=== PATIENT | female | born 1935 | race Caucasian/White ===

== ENCOUNTER 2016-08-09 13:39 | Emergency (ER) | payer OTHER ==
[~2016-08-09] VITALS: Ht 157.5 cm; Wt 71.2 kg
[~2016-08-09 13:39] MED LIST: AMLODIPINE BES2.5 MG PO; AMLODIPINE BESYL5 MG PO; AMLODIPINE BESYLATE; ASPIRIN325 MG PO; CATAPRES0.1 MG PO; CELEBREX; CELEBREX200 MG PO; CRANBERRY200 MG PO; DIOVAN160 MG PO; DOXYCYCLINE; FENTANYL1 EAC5 TD; FLEXERIL10 MG PO; GLUCOSAMINE CH1 EAC4 PO; ICAPS LUTEIN1 TABLET PO; LEVOTHROID75 MCG PO; LEVOTHYROXINE; LEVOTHYROXINE75 MCG PO; LO-DOSE ASPIRIN81 M1; MULTIVITAMIN1 EAC2 PO; ONGLYZA; ONGLYZA5 MG PO; PROMETHAZINE HC25 M1 PO; TRADJENTA5 MG; TRAMADOL; TRAMADOL HCL50 MG PO; Xanax PO
[2016-08-09 16:07] VITALS: BP 136/63
== END 2016-08-09 16:09 | disposition home or self-care (01) ==
LOC: EME 13:39
DX: M54.5 Low back pain (principal); G89.29 Other chronic pain; M25.552 Pain in left hip; M79.605 Pain in left leg; I10 Essential (primary) hypertension; E11.9 Type 2 diabetes mellitus without complications; E03.9 Hypothyroidism, unspecified; Z79.82 Long term (current) use of aspirin; F17.200 Nicotine dependence, unspecified, uncomplicated
CPT/HCPCS: 99281; 99284; J2270

== ENCOUNTER 2016-08-20 12:27 | Emergency (ER) | payer OTHER ==
[~2016-08-20] VITALS: Ht 157.5 cm; Wt 73.1 kg
[2016-08-20 14:47] LABS: ADD MIUA? NO; BILIRUBIN NEGATIVE; BLOOD NEGATIVE; COLOR STRAW ((YELLOW)); GLUCOSE (STRIP) NEGATIVE; KETONES NEGATIVE; LEUKOCYTES NEGATIVE; NITRITE NEGATIVE; PROTEIN (STRIP) NEGATIVE; SPECIFIC GRAVITY 1.004 (1.000-1.030); UCUL ADDED? NO; UROBILINOGEN 0.2 MG/DL (0.2-1.0)
[2016-08-20] MEDS ORDERED: TORADOL10 MG PO (16:07)
[2016-08-20 16:45] VITALS: BP 139/68
== END 2016-08-20 16:57 | disposition home or self-care (01) ==
LOC: EME 12:27
PROVIDERS: Emergency Medicine
DX: M54.9 Dorsalgia, unspecified (principal); E11.9 Type 2 diabetes mellitus without complications; I10 Essential (primary) hypertension; I25.2 Old myocardial infarction; E03.9 Hypothyroidism, unspecified; F17.200 Nicotine dependence, unspecified, uncomplicated; Z79.82 Long term (current) use of aspirin
CPT/HCPCS: 81003; 99281; 99284; J2270; J3010

== ENCOUNTER 2016-08-29 16:54 | Emergency (ER) | payer OTHER ==
[~2016-08-29] VITALS: Ht 157.5 cm; Wt 72.1 kg
[~2016-08-29 16:54] MED LIST changes: +TORADOL10 MG PO
[2016-08-29] MEDS ORDERED: ROBAXIN750 MG PO (20:21)
[2016-08-29 20:58] VITALS: BP 165/88
== END 2016-08-29 20:57 | disposition home or self-care (01) ==
LOC: EME 16:54
DX: G89.29 Other chronic pain (principal); M54.5 Low back pain; M48.00 Spinal stenosis, site unspecified; M79.651 Pain in right thigh; M79.652 Pain in left thigh; I10 Essential (primary) hypertension; E11.9 Type 2 diabetes mellitus without complications; E03.9 Hypothyroidism, unspecified; Z79.82 Long term (current) use of aspirin; Z86.14 Personal history of Methicillin resistant Staphylococcus aureus infection; F17.200 Nicotine dependence, unspecified, uncomplicated
CPT/HCPCS: 99281; 99283; J2360; J3010

== ENCOUNTER 2016-09-01 17:36 | Emergency (ER) | payer OTHER ==
[~2016-09-01] VITALS: Ht 157.5 cm; Wt 71.6 kg
[~2016-09-01 17:36] MED LIST changes: +ROBAXIN750 MG PO
[2016-09-01] MEDS ORDERED: DILAUDID2 MG PO (20:31)
[2016-09-01 21:23] VITALS: BP 118/60
== END 2016-09-01 21:24 | disposition home or self-care (01) ==
LOC: EME 17:36
DX: M54.42 Lumbago with sciatica, left side (principal); G89.29 Other chronic pain; Z88.2 Allergy status to sulfonamides; Z88.1 Allergy status to other antibiotic agents; Z88.0 Allergy status to penicillin
CPT/HCPCS: 99281; 99284; J3010

== ENCOUNTER 2016-10-11 08:22 | Emergency (ER) | payer OTHER ==
[~2016-10-11] VITALS: Ht 157.5 cm; Wt 72.2 kg
[~2016-10-11 08:22] MED LIST changes: +DILAUDID2 MG PO
[2016-10-11] MEDS ORDERED: FLEXERIL5 MG PO (10:00)
[2016-10-11] MEDS ORDERED: LIDODERM 5% P1 PATCH TD (10:00)
[2016-10-11 13:20] VITALS: BP 139/89
== END 2016-10-11 13:59 | disposition home or self-care (01) ==
LOC: EME 08:22
DX: M54.42 Lumbago with sciatica, left side (principal); G89.29 Other chronic pain; I10 Essential (primary) hypertension; E11.9 Type 2 diabetes mellitus without complications; I25.2 Old myocardial infarction; E03.9 Hypothyroidism, unspecified; Z87.891 Personal history of nicotine dependence; Z86.14 Personal history of Methicillin resistant Staphylococcus aureus infection
CPT/HCPCS: 99281; 99284; G8987 GO CJ; G8988 GO CH

== ENCOUNTER 2017-06-22 08:23 | Inpatient (IN) | payer OTHER ==
[~2017-06-22] VITALS: Ht 154.9 cm; Wt 73.6 kg
[~2017-06-22 08:23] MED LIST changes: +24 HOUR ALLER15.8 ML BOTH NARES; +CLARITHROMYCIN500 MG PO; +COMBIVENT RESPIM4 GM IH; +FLEXERIL5 MG PO; +LIDODERM 5% P1 PATCH TD; -LO-DOSE ASPIRIN81 M1; +LO-DOSE ASPIRIN81 M1 PO; -TRADJENTA5 MG; +TRADJENTA5 MG PO; +XANAX0.25 MG PO
[2017-06-22 18:37] VITALS: BP 111/53
[2017-06-22 19:59] VITALS: BP 138/63
[2017-06-22 22:59] VITALS: BP 131/81
[2017-06-23 05:28] VITALS: BP 120/56
[2017-06-23 07:58] LABS: HEMATOCRIT 29.5 % (36.0-46.0); HEMOGLOBIN 9.3 G/DL (11.9-15.5); MCH 27.6 PG (29.0-34.0); MCHC 31.5 G/DL (30.0-36.0); MCV 87.5 FL (83-99); PLATELET COUNT 249 K/uL (156-360); RBC DIS.WIDTH-CV 14.7 % (11.8-14.6); RBC DIS.WIDTH-SD 47.4 % (39-53); RED BLOOD COUNT 3.37 M/uL (3.80-5.20); WHITE BLOOD COUNT 8.3 K/uL (4.1-10.2)
[2017-06-23 08:09] VITALS: BP 108/51
[2017-06-23 12:20] VITALS: BP 146/68
[2017-06-23] MEDS ORDERED: NASACORT10.8 ML BOTH NARES (14:27)
[2017-06-23] MEDS ORDERED: ICAPS MULTIV1 TABLET PO (14:30)
[2017-06-23] MEDS ORDERED: GLUCOSAMINE CH1 EAC7 PO (14:31)
[2017-06-23] MEDS ORDERED: AMLODIPINE BESY10 MG PO (14:45)
[2017-06-23] MEDS ORDERED: ALPHAGAN P100 DROP/5 LEFT EYE (14:47)
[2017-06-23] MEDS ORDERED: OMNIPRED10 ML LEFT EYE (14:48)
[2017-06-23] MEDS ORDERED: KETOROLAC TROME10 ML LEFT EYE (14:49)
[2017-06-23 16:09] VITALS: BP 140/65
== END 2017-06-23 17:37 | disposition home or self-care (01) | DRG 200 ==
LOC: OPR 08:23 → EDSTATUS 09:00 → 2SOUTH 12:26 → 3EAST 12:26 → ENRESERV 12:29 → 3EAST 18:15
PROVIDERS: Internal Medicine; Internal Medicine Pulmonary Disease
PROC: 0BBG3ZX Excision of Left Upper Lung Lobe, Percutaneous Approach, Diagnostic (ICD-10-PCS; principal; 2017-06-22)
PROC: 0W9B30Z Drainage of Left Pleural Cavity with Drainage Device, Percutaneous Approach (ICD-10-PCS; 2017-06-22)
DX: J95.811 Postprocedural pneumothorax (principal); J95.830 Postprocedural hemorrhage of a respiratory system organ or structure following a respiratory system procedure; Y83.8 Other surgical procedures as the cause of abnormal reaction of the patient, or of later complication, without mention of misadventure at the time of the procedure; C34.12 Malignant neoplasm of upper lobe, left bronchus or lung; E11.9 Type 2 diabetes mellitus without complications; J44.9 Chronic obstructive pulmonary disease, unspecified; G89.29 Other chronic pain; M54.9 Dorsalgia, unspecified; I10 Essential (primary) hypertension; I25.10 Atherosclerotic heart disease of native coronary artery without angina pectoris; M25.50 Pain in unspecified joint; M25.60 Stiffness of unspecified joint, not elsewhere classified; M48.00 Spinal stenosis, site unspecified; I25.2 Old myocardial infarction; E66.9 Obesity, unspecified; Z68.30 Body mass index [BMI] 30.0-30.9, adult; Z87.891 Personal history of nicotine dependence
CPT/HCPCS: 32552; 32560; 71045; 77012; 82948; 85027; 88305; 88341 TC; 88342 TC; 99202; C1729; C1769; J3010

== ENCOUNTER 2017-12-01 05:45 | Day surgery (SDC) | payer OTHER ==
[~2017-12-01] VITALS: Ht 157.5 cm; Wt 71.6 kg
[~2017-12-01 05:45] MED LIST changes: +ALPHAGAN P100 DROP/5 LEFT EYE; +AMLODIPINE BESY10 MG PO; +GLUCOSAMINE CH1 EAC7 PO; +ICAPS MULTIV1 TABLET PO; +KETOROLAC TROME10 ML LEFT EYE; +NASACORT10.8 ML BOTH NARES; +OMNIPRED10 ML LEFT EYE; +PROVENTIL,2.5 MG/3 M IH; +TYLENOL EXTRA500 MG PO; +VENTOLIN HFA18 GM IH
[2017-12-01 06:25] VITALS: BP 123/60
[2017-12-01] MEDS ORDERED: NORCO 5/3251 TABLET PO (08:37)
[2017-12-01 09:15] VITALS: BP 141/74
[2017-12-01 09:50] VITALS: BP 133/58
== END 2017-12-01 10:00 | disposition home or self-care (01) ==
LOC: SDC 05:45
PROVIDERS: Surgery
DX: Z45.2 Encounter for adjustment and management of vascular access device (principal); I87.8 Other specified disorders of veins; C34.90 Malignant neoplasm of unspecified part of unspecified bronchus or lung; J44.9 Chronic obstructive pulmonary disease, unspecified; I25.2 Old myocardial infarction; I10 Essential (primary) hypertension; E11.9 Type 2 diabetes mellitus without complications; E03.9 Hypothyroidism, unspecified; I25.10 Atherosclerotic heart disease of native coronary artery without angina pectoris; E78.5 Hyperlipidemia, unspecified; Z79.82 Long term (current) use of aspirin; Z87.891 Personal history of nicotine dependence; Z88.8 Allergy status to other drugs, medicaments and biological substances; Z88.0 Allergy status to penicillin; Z88.2 Allergy status to sulfonamides; I45.10 Unspecified right bundle-branch block
CPT/HCPCS: 71045; 82948; 87641; 93005; C1751

== ENCOUNTER 2017-12-11 19:25 | Emergency (ER) | payer OTHER ==
[~2017-12-11] VITALS: Ht 157.5 cm; Wt 75.0 kg
[~2017-12-11 19:25] MED LIST changes: +NORCO 5/3251 TABLET PO
[2017-12-11 20:44] LABS: BASOPHIL (%) 0.5 % (0-1); BASOPHIL COUNT 0.1 K/uL (0-0.1); EOSINOPHIL (%) 5.2 % (0-5); EOSINOPHIL COUNT 0.5 K/uL (0-0.3); HEMATOCRIT 30.3 % (36.0-46.0); HEMOGLOBIN 9.7 G/DL (11.9-15.5); IMMATURE GRANULOCYTE (%) 0.4 % (0.0-0.7); LYMPHOCYTE (%) 8.8 % (15-42); LYMPHOCYTE COUNT 0.8 K/uL (1.0-2.8); MCH 29.2 PG (29.0-34.0); MCV 91.3 FL (83-99); NEUTROPHIL (%) 74.1 % (45-76); NEUTROPHIL COUNT 6.9 K/uL (1.8-6.4); PLATELET COUNT 268 K/uL (156-360); RBC DIS.WIDTH-CV 18.2 % (11.8-14.6); RBC DIS.WIDTH-SD 61.5 % (39-53); RED BLOOD COUNT 3.32 M/uL (3.80-5.20); WHITE BLOOD COUNT 9.3 K/uL (4.1-10.2)
[2017-12-11 21:56] LABS: INTER. NORMALIZED RATIO 1.1
[2017-12-11 22:02] LABS: ALBUMIN 4.1 g/dL (3.2-4.8)
[2017-12-11 22:03] LABS: CHLORIDE 100 mEq/L (99-109); POTASSIUM 4.1 mEq/L (3.7-5.4); SODIUM 136 mEq/L (136-147)
[2017-12-11 22:05] LABS: GLUCOSE 128 mg/dL (70-99); TOTAL PROTEIN 7.8 g/dL (6.4-8.3)
[2017-12-11 22:07] LABS: TOTAL BILIRUBIN 0.3 mg/dL (0.0-1.0)
[2017-12-11 22:08] LABS: ALKALINE PHOSPHATASE 114 IU/L (3-129)
[2017-12-11 22:09] LABS: GFR ESTIMATE (CALCULATED) 56 mL/min/; TROP-I INTERPRETATION NEGATIVE; TROPONIN-I < 0.01 ng/mL (0.0-0.30)
[2017-12-11 22:10] LABS: AST (GOT) 19 IU/L (2-34); UREA NITROGEN (BUN) 16 mg/dL (9-23)
[2017-12-11 22:11] LABS: ALT (GPT) 14 IU/L (3-49)
[2017-12-11 22:17] LABS: APPEARANCE CLEAR ((CLEAR)); BILIRUBIN NEGATIVE; BLOOD NEGATIVE; COLOR AMBER ((YELLOW)); GLUCOSE (STRIP) NEGATIVE; KETONES NEGATIVE; LEUKOCYTES TRACE; NITRITE NEGATIVE; PROTEIN (STRIP) 30; UROBILINOGEN 0.2 MG/DL (0.2-1.0)
[2017-12-11 22:38] LABS: BACTERIA RARE /HPF; EPITHELIAL CELLS RARE /HPF; HYALINE CASTS 20-30 /LPF; MUCUS TRACE /LPF; RED BLOOD CELLS 0-5 /HPF (0-5)
[2017-12-12] VITALS: BP 160/82
== END 2017-12-12 | disposition home or self-care (01) ==
LOC: EME → EDBD 19:25 → EME 19:25
PROVIDERS: Emergency Medicine
PROC: 0CQ0XZZ Repair Upper Lip, External Approach (ICD-10-PCS; principal; 2017-12-11)
DX: S02.2XXA Fracture of nasal bones, initial encounter for closed fracture (principal); S62.307A Unspecified fracture of fifth metacarpal bone, left hand, initial encounter for closed fracture; S61.412A Laceration without foreign body of left hand, initial encounter; S01.511A Laceration without foreign body of lip, initial encounter; W10.9XXA Fall (on) (from) unspecified stairs and steps, initial encounter; Y93.01 Activity, walking, marching and hiking; Y92.009 Unspecified place in unspecified non-institutional (private) residence as the place of occurrence of the external cause; C34.90 Malignant neoplasm of unspecified part of unspecified bronchus or lung; J44.9 Chronic obstructive pulmonary disease, unspecified; E11.9 Type 2 diabetes mellitus without complications; G43.909 Migraine, unspecified, not intractable, without status migrainosus; E03.9 Hypothyroidism, unspecified; G89.29 Other chronic pain; M54.5 Low back pain; I25.2 Old myocardial infarction; Z79.82 Long term (current) use of aspirin; Z79.51 Long term (current) use of inhaled steroids; Z79.84 Long term (current) use of oral hypoglycemic drugs; Z92.21 Personal history of antineoplastic chemotherapy; Z87.891 Personal history of nicotine dependence; Z86.14 Personal history of Methicillin resistant Staphylococcus aureus infection; Z87.442 Personal history of urinary calculi; Z90.710 Acquired absence of both cervix and uterus; Z88.1 Allergy status to other antibiotic agents; Z88.2 Allergy status to sulfonamides; Z88.6 Allergy status to analgesic agent; Z88.0 Allergy status to penicillin; Z88.8 Allergy status to other drugs, medicaments and biological substances; Z91.02 Food additives allergy status
CPT/HCPCS: 70450; 70486; 72125; 73080; 73130; 80053; 81003; 84484; 85025; 85610; 93005; 99281; 99285

== ENCOUNTER 2017-12-30 13:22 | Inpatient (IN) | payer OTHER ==
[2017-12-30] VITALS (8 sets, daily range): BP systolic 126–143; BP diastolic 58–86
[~2017-12-30] VITALS: Ht 162.6 cm; Wt 73.9 kg
[~2017-12-30 13:22] MED LIST changes: +GLUCOSAMINE H1500 MG PO; -LEVOTHROID75 MCG PO; +SYNTHROID75 MCG PO
[2017-12-30 14:52] LABS: COMMENTS - BLOOD GASES +C; DEVICE NC; O2 FLOW 2 L/MIN; SITE RR +A; TOTAL RESP RATE 20 resp/min
[2017-12-30 14:53] LABS: BASE EXCESS 1.3 mEq/L (-3 to +3); BICARBONATE 25.9 mEq/L (22-26); CARBOXY HGB 1.4 % (0-5); METHEMOGLOBIN 0.9 % (0-1.5); O2 SATURATION (CALCULATED) 95.9 % (95-99); PCO2 40 mm Hg (35-45); PO2 71 mm Hg (80-100); pH 7.42 (7.35-7.45)
[2017-12-30 15:00] LABS: ALBUMIN 3.7 g/dL (3.2-4.8); CHLORIDE 103 mEq/L (99-109); POTASSIUM 4.2 mEq/L (3.7-5.4); SODIUM 137 mEq/L (136-147)
[2017-12-30 15:02] LABS: BASOPHIL (%) 0.3 % (0-1); EOSINOPHIL (%) 3.2 % (0-5); EOSINOPHIL COUNT 0.4 K/uL (0-0.3); GLUCOSE 124 mg/dL (70-99); HEMATOCRIT 18.9 % (36.0-46.0); HEMOGLOBIN 6.1 G/DL (11.9-15.5); IMMATURE GRANULOCYTE (%) 0.3 % (0.0-0.7); LYMPHOCYTE (%) 9.5 % (15-42); LYMPHOCYTE COUNT 1.1 K/uL (1.0-2.8); MCH 28.9 PG (29.0-34.0); MCHC 32.3 G/DL (30.0-36.0); MCV 89.6 FL (83-99); MONOCYTE (%) 8.4 % (3-12); NEUTROPHIL (%) 78.3 % (45-76); NEUTROPHIL COUNT 9.1 K/uL (1.8-6.4); PLATELET COUNT 289 K/uL (156-360); RBC DIS.WIDTH-CV 16.7 % (11.8-14.6); RBC DIS.WIDTH-SD 54.3 % (39-53); RED BLOOD COUNT 2.11 M/uL (3.80-5.20); WHITE BLOOD COUNT 11.6 K/uL (4.1-10.2)
[2017-12-30 15:03] LABS: TOTAL PROTEIN 7.3 g/dL (6.4-8.3)
[2017-12-30 15:04] LABS: TOTAL BILIRUBIN 0.3 mg/dL (0.0-1.0)
[2017-12-30 15:06] LABS: ALKALINE PHOSPHATASE 106 IU/L (3-129); CREATININE 0.8 mg/dL (0.6-1.3); GFR ESTIMATE (CALCULATED) > 59 mL/min/
[2017-12-30 15:07] LABS: UREA NITROGEN (BUN) 16 mg/dL (9-23)
[2017-12-30 15:08] LABS: AST (GOT) 13 IU/L (2-34)
[2017-12-30 15:09] LABS: ALT (GPT) 9 IU/L (3-49)
[2017-12-30 15:13] LABS: TROP-I INTERPRETATION NEGATIVE; TROPONIN-I 0.01 ng/mL (0.0-0.30)
[2017-12-30 15:56] LABS: APPEARANCE CLEAR ((CLEAR)); BILIRUBIN NEGATIVE; BLOOD NEGATIVE; COLOR YELLOW ((YELLOW)); GLUCOSE (STRIP) NEGATIVE; KETONES NEGATIVE; LEUKOCYTES NEGATIVE; NITRITE NEGATIVE; PROTEIN (STRIP) NEGATIVE; SPECIFIC GRAVITY 1.011 (1.000-1.030); UCUL ADDED? NO; UROBILINOGEN 0.2 MG/DL (0.2-1.0)
[2017-12-30] MEDS ORDERED: FLONASE16 G1 BOTH NARES (16:07)
[2017-12-30] MEDS ORDERED: ALPRAZOLAM0.25 M2 PO (16:08)
[2017-12-30] MEDS ORDERED: LIDOCAINE-PRIL1 EACH TP (16:08)
[2017-12-30] MEDS ORDERED: ICAPS TABLET1 EACH PO (16:09)
[2017-12-30] MEDS ORDERED: COMPAZINE10 MG PO (16:09)
[2017-12-30] MEDS ORDERED: ZOFRAN8 MG PO (16:09)
[2017-12-30] MEDS ORDERED: MUCINEX DM ER1 EACH PO (16:09)
[2017-12-31 01:13] VITALS: BP 117/59
[2017-12-31 03:36] VITALS: BP 131/66
[2017-12-31 07:27] LABS: CHLORIDE 100 MEQ/L (99-109); CREATININE 0.8 MG/DL (0.6-1.3); GFR ESTIMATE (CALCULATED) > 59 mL/min/; GLUCOSE 141 mg/dL (70-99); SODIUM 138 MEQ/L (136-147); UREA NITROGEN (BUN) 14 mg/dL (9-23)
[2017-12-31 07:49] VITALS: BP 127/74
[2017-12-31 08:05] LABS: BASOPHIL (%) 0.1 % (0-1); EOSINOPHIL (%) 0 % (0-5); HEMATOCRIT 30.7 % (36.0-46.0); HEMOGLOBIN 9.7 G/DL (11.9-15.5); IMMATURE GRANULOCYTE (%) 0.5 % (0.0-0.7); LYMPHOCYTE (%) 9.6 % (15-42); LYMPHOCYTE COUNT 0.7 K/uL (1.0-2.8); MCH 28.1 PG (29.0-34.0); MCHC 31.6 G/DL (30.0-36.0); MONOCYTE (%) 6.4 % (3-12); MONOCYTE COUNT 0.5 K/uL (0-0.8); NEUTROPHIL (%) 83.4 % (45-76); NEUTROPHIL COUNT 6.3 K/uL (1.8-6.4); PLATELET COUNT 230 K/uL (156-360); RBC DIS.WIDTH-SD 52.3 % (39-53); RED BLOOD COUNT 3.45 M/uL (3.80-5.20); WHITE BLOOD COUNT 7.5 K/uL (4.1-10.2)
[2017-12-31 09:01] LABS: FERRITIN 47 NG/ML (10-291)
[2017-12-31 12:06] VITALS: BP 106/56
[2017-12-31 14:03] LABS: IRON 28 MCG/DL (35-150)
[2017-12-31 16:19] VITALS: BP 122/82
[2017-12-31 20:00] VITALS: BP 130/70
[2017-12-31 20:17] LABS: ABSOLUTE RETICULOCYTE CT. 0.07 M/uL (0.02-0.08); IMM.RETIC FRACTION 21.8 % (3-19); RETIC HGB EQUIVALENT 26.9 (28-36); RETICULOCYTE COUNT 1.9 % (0.5-1.8)
[2017-12-31 20:26] LABS: LACTATE DEHYDROGENASE 171 IU/L (20-246)
[2018-01-01] VITALS (7 sets, daily range): BP systolic 100–141; BP diastolic 60–75
[2018-01-01 06:37] LABS: HEMATOCRIT 32.1 % (36.0-46.0); HEMOGLOBIN 10.2 G/DL (11.9-15.5); MCH 28.3 PG (29.0-34.0); MCHC 31.8 G/DL (30.0-36.0); MCV 89.2 FL (83-99); PLATELET COUNT 254 K/uL (156-360); RBC DIS.WIDTH-CV 15.9 % (11.8-14.6); RBC DIS.WIDTH-SD 53.1 % (39-53); WHITE BLOOD COUNT 9.4 K/uL (4.1-10.2)
[2018-01-01 07:00] LABS: ALBUMIN 3.3 G/DL (3.2-4.8); ALKALINE PHOSPHATASE 82 IU/L (3-129); ALT (GPT) 8 IU/L (3-49); AST (GOT) 13 IU/L (2-34); CHLORIDE 98 MEQ/L (99-109); CREATININE 0.9 MG/DL (0.6-1.3); GFR ESTIMATE (CALCULATED) > 59 mL/min/; SODIUM 138 MEQ/L (136-147); TOTAL BILIRUBIN 0.4 MG/DL (0.0-1.0); TOTAL PROTEIN 6.4 G/DL (6.4-8.3); UREA NITROGEN (BUN) 18 mg/dL (9-23)
[2018-01-01 07:09] LABS: GLUCOSE 99 mg/dL (70-99)
[2018-01-02] VITALS: BP 125/67
[2018-01-02 04:00] VITALS: BP 128/69
[2018-01-02 07:25] VITALS: BP 124/65
[2018-01-02 12:10] VITALS: BP 116/67
[2018-01-02 16:15] VITALS: BP 133/62
[2018-01-02 19:24] VITALS: BP 113/69
[2018-01-03] VITALS (7 sets, daily range): BP systolic 99–135; BP diastolic 59–77
[2018-01-03 06:31] LABS: HEMATOCRIT 32.5 % (36.0-46.0); HEMOGLOBIN 10.6 G/DL (11.9-15.5); MCH 29.3 PG (29.0-34.0); MCHC 32.6 G/DL (30.0-36.0); MCV 89.8 FL (83-99); PLATELET COUNT 229 K/uL (156-360); RBC DIS.WIDTH-CV 15.8 % (11.8-14.6); RBC DIS.WIDTH-SD 52.2 % (39-53); RED BLOOD COUNT 3.62 M/uL (3.80-5.20); WHITE BLOOD COUNT 8.2 K/uL (4.1-10.2)
[2018-01-03 06:59] LABS: ALBUMIN 3.3 G/DL (3.2-4.8); ALKALINE PHOSPHATASE 93 IU/L (3-129); CHLORIDE 94 MEQ/L (99-109); GFR ESTIMATE (CALCULATED) 56 mL/min/; GLUCOSE 108 mg/dL (70-99); POTASSIUM 4.9 MEQ/L (3.7-5.4); SODIUM 135 MEQ/L (136-147); TOTAL PROTEIN 6.3 G/DL (6.4-8.3); UREA NITROGEN (BUN) 22 mg/dL (9-23)
[2018-01-03 07:01] LABS: ALT (GPT) 34 IU/L (3-49); AST (GOT) 26 IU/L (2-34); TOTAL BILIRUBIN 0.3 MG/DL (0.0-1.0)
[2018-01-04 04:04] VITALS: BP 123/74
[2018-01-04 06:13] LABS: HEMATOCRIT 30.4 % (36.0-46.0); HEMOGLOBIN 9.9 G/DL (11.9-15.5); MCH 28.5 PG (29.0-34.0); MCHC 32.6 G/DL (30.0-36.0); MCV 87.6 FL (83-99); PLATELET COUNT 242 K/uL (156-360); RBC DIS.WIDTH-CV 15.5 % (11.8-14.6); RBC DIS.WIDTH-SD 49.6 % (39-53); RED BLOOD COUNT 3.47 M/uL (3.80-5.20); WHITE BLOOD COUNT 9.8 K/uL (4.1-10.2)
[2018-01-04] MEDS ORDERED: LEVOFLOXACIN750 MG PO (06:44)
[2018-01-04] MEDS ORDERED: PANTOPRAZOLE SO40 MG PO (06:45)
[2018-01-04] MEDS ORDERED: PREDNISONE20 MG PO (06:45)
[2018-01-04 06:52] LABS: ALBUMIN 3.3 G/DL (3.2-4.8); ALKALINE PHOSPHATASE 109 IU/L (3-129); ALT (GPT) 48 IU/L (3-49); AST (GOT) 29 IU/L (2-34); CHLORIDE 92 MEQ/L (99-109); GFR ESTIMATE (CALCULATED) 56 mL/min/; GLUCOSE 104 mg/dL (70-99); POTASSIUM 4.7 MEQ/L (3.7-5.4); SODIUM 131 MEQ/L (136-147); TOTAL BILIRUBIN 0.3 MG/DL (0.0-1.0); TOTAL PROTEIN 6.3 G/DL (6.4-8.3)
[2018-01-04 07:00] VITALS: BP 128/60
[2018-01-04 07:03] LABS: UREA NITROGEN (BUN) 34 mg/dL (9-23)
[2018-01-04 11:55] VITALS: BP 120/67
== END 2018-01-04 14:15 | disposition home health service (06) | DRG 194 ==
LOC: EME 13:22 → EDOF 15:58 → 5SOUTH 15:58 → ENRESERV 16:00 → ENRESERVTM 16:51 → ENRESERVDT 16:51 → 5SOUTH 17:40
PROVIDERS: Emergency Medicine; Hospitalist; Internal Medicine
PROC: 30233N1 Transfusion of Nonautologous Red Blood Cells into Peripheral Vein, Percutaneous Approach (ICD-10-PCS; principal; 2017-12-30)
DX: J18.9 Pneumonia, unspecified organism (principal); K92.2 Gastrointestinal hemorrhage, unspecified; J44.0 Chronic obstructive pulmonary disease with (acute) lower respiratory infection; D62 Acute posthemorrhagic anemia; E03.9 Hypothyroidism, unspecified; R09.02 Hypoxemia; G89.29 Other chronic pain; C34.92 Malignant neoplasm of unspecified part of left bronchus or lung; I25.10 Atherosclerotic heart disease of native coronary artery without angina pectoris; D63.0 Anemia in neoplastic disease; K59.00 Constipation, unspecified; I10 Essential (primary) hypertension; E11.9 Type 2 diabetes mellitus without complications; I25.2 Old myocardial infarction; Z92.3 Personal history of irradiation; Z90.710 Acquired absence of both cervix and uterus; Z92.21 Personal history of antineoplastic chemotherapy; Z79.82 Long term (current) use of aspirin; Z87.891 Personal history of nicotine dependence; Z79.84 Long term (current) use of oral hypoglycemic drugs; Z87.442 Personal history of urinary calculi; Z88.9 Allergy status to unspecified drugs, medicaments and biological substances
CPT/HCPCS: 36600; 71045; 74018; 80048; 80053; 81003; 82728; 83010 90; 83540; 83605; 83615; 83880; 84484; 85025; 85027; 85046; 86850; 86900; 86901; 86920; 87040; 87070; 87205; 87449; 93005; 94640; 94669; 94799; 99281; 99285; J1756; J2185; J2930; J7040; J7050; J7512; P9016

== ENCOUNTER 2018-02-04 22:10 | Emergency (ER) | payer OTHER ==
[~2018-02-04] VITALS: Ht 154.9 cm; Wt 72.7 kg
[~2018-02-04 22:10] MED LIST changes: +ALPRAZOLAM0.25 M2 PO; +COMPAZINE10 MG PO; +FLONASE16 G1 BOTH NARES; +ICAPS TABLET1 EACH PO; +LEVOFLOXACIN750 MG PO; +LIDOCAINE-PRIL1 EACH TP; +MUCINEX DM ER1 EACH PO; +PANTOPRAZOLE SO40 MG PO; +PREDNISONE20 MG PO; +ZOFRAN8 MG PO
[2018-02-05 01:51] LABS: HEMATOCRIT 30.9 % (36.0-46.0); HEMOGLOBIN 10.2 G/DL (11.9-15.5); MCH 29.4 PG (29.0-34.0); PLATELET COUNT 212 K/uL (156-360); RBC DIS.WIDTH-CV 16.2 % (11.8-14.6); RBC DIS.WIDTH-SD 53.5 % (39-53); RED BLOOD COUNT 3.47 M/uL (3.80-5.20); WHITE BLOOD COUNT 4.8 K/uL (4.1-10.2)
[2018-02-05 02:02] LABS: ALBUMIN 3.5 g/dL (3.2-4.8); CHLORIDE 99 mEq/L (99-109); POTASSIUM 3.8 mEq/L (3.7-5.4); SODIUM 139 mEq/L (136-147)
[2018-02-05 02:05] LABS: GLUCOSE 112 mg/dL (70-99); TOTAL PROTEIN 6.7 g/dL (6.4-8.3)
[2018-02-05 02:06] LABS: TOTAL BILIRUBIN 0.3 mg/dL (0.0-1.0)
[2018-02-05 02:08] LABS: ALKALINE PHOSPHATASE 94 IU/L (3-129); CREATININE 0.9 mg/dL (0.6-1.3); GFR ESTIMATE (CALCULATED) > 59 mL/min/
[2018-02-05 02:09] LABS: UREA NITROGEN (BUN) 15 mg/dL (9-23)
[2018-02-05 02:10] LABS: AST (GOT) 15 IU/L (2-34)
[2018-02-05 02:11] LABS: ALT (GPT) 11 IU/L (3-49)
[2018-02-05 02:12] LABS: LIPASE 23 U/L (1.0-51.0)
[2018-02-05 03:10] VITALS: BP 137/75
== END 2018-02-05 03:10 | disposition home or self-care (01) ==
LOC: EME → EDBD 22:10 → EME 02-05 03:10
PROVIDERS: Emergency Medicine
DX: K59.00 Constipation, unspecified (principal); E03.9 Hypothyroidism, unspecified; G89.29 Other chronic pain; M54.5 Low back pain; J45.909 Unspecified asthma, uncomplicated; J43.9 Emphysema, unspecified; G43.909 Migraine, unspecified, not intractable, without status migrainosus; I25.2 Old myocardial infarction; Z79.82 Long term (current) use of aspirin; Z87.442 Personal history of urinary calculi; Z86.14 Personal history of Methicillin resistant Staphylococcus aureus infection; Z87.891 Personal history of nicotine dependence; Z90.710 Acquired absence of both cervix and uterus; Z88.1 Allergy status to other antibiotic agents; Z88.0 Allergy status to penicillin; Z88.8 Allergy status to other drugs, medicaments and biological substances; Z88.2 Allergy status to sulfonamides
CPT/HCPCS: 80053; 81003; 83690; 85027; 99281; 99285